=== PATIENT | male | born 1990 | race Caucasian/White ===

== ENCOUNTER 2021-07-22 18:55 | Emergency (ER) | payer SELFPAY ==
--- NOTE | 2021-07-22 22:08 | RAD REPORT ---
EXAM DESCRIPTION: RAD - Hand Right 3 View - 07/22/2021 9:19 pm CLINICAL HISTORY: Pain;Swelling COMPARISON: Hand Right 3 View dated 12/03/2011 FINDINGS: Two small screws are seen in the third metacarpal shaft. No acute fracture or dislocation seen.
--- NOTE | 2021-07-23 03:24 | ER ---
Nurse's Notes [facility] Name: Juan David Moeller Age: 30 yrs Sex: Male : 1990 Arrival Date: 07/22/2021 Time: 19:01 Bed 12 Private MD: Diagnosis: Contusion, Right Hand;Abrasion, Hands;Burn bilateral palms, Healing Presentation: 07/22 20:20 Chief complaint: Patient states: hit right hand against auger at work , feels like it's iw broken , happened 3 day ago , had also burnt his hands a couple days before that. Coronavirus screen: At this time, the client does not indicate any symptoms associated with coronavirus-19. Ebola Screen: Patient negative for fever greater than or equal to 101.5 degrees Fahrenheit, and additional compatible Ebola Virus Disease symptoms Patient denies exposure to infectious person. Patient denies travel to an Ebola-affected area in the 21 days before illness onset. No symptoms or risks identified at this time. Initial Sepsis Screen: Does the patient meet any 2 criteria? No. Patient's initial sepsis screen is negative. Does the patient have a suspected source of infection? No. Patient's initial sepsis screen is negative. Risk Assessment: Do you want to hurt yourself or someone else? Patient reports no desire to harm self or others. Onset of symptoms was July 19, 2021. 20:20 Method Of Arrival: Ambulatory iw 20:20 Acuity: LEONARDO 4 iw Historical: - Allergies: 20:22 Sulfa (Sulfonamide Antibiotics); iw - Home Meds: 20:22 None [Active]; iw - PMHx: 20:22 None; iw - Immunization history:: Client reports having NOT received the Covid vaccine. - Social history:: Smoking status: Patient reports the use of cigarette tobacco products, smokes one-half pack cigarettes per day. Assessment: 07/23 03:43 Reassessment: Patient is alert, oriented x 3, equal unlabored respirations, skin bb warm/dry/pink. pt seen by this RN at discharge. Pt verbalized understanding of and agrees to plan of care discharge instructions given pt ambulated with steady gait to exit. Vital Signs: 07/22 20:20 BP 160 / 80; Pulse 87; Resp 16; Temp 98.9; Pulse Ox 100% on R/A; Weight 61.23 kg; iw Height 5 ft. 9 in. (175.26 cm); Pain 3/10; 07/23 03:41 BP 153 / 71; Pulse 67; Resp 16; Temp 97.9(O); Pulse Ox 99% on R/A; tt3 07/22 20:20 Body Mass Index 19.94 (61.23 kg, 175.26 cm) iw ED Course: 07/22 19:01 Patient arrived in ED. ds1 20:22 Triage completed. iw 20:23 Arm band placed on. iw 21:19 Hand Right 3 View XRAY In Process Unspecified. EDSD 07/23 02:51 Saul Sam MD is Attending Physician. [facility] 03:19 Turner Patel MD is Referral Physician. [facility] 03:45 No provider procedures requiring assistance completed. Patient did not have IV access bb during this emergency room visit. Administered Medications: 03:31 Drug: Ketorolac 60 mg Route: IM; Site: left gluteus; bb Outcome: 03:24 Discharge ordered by . [facility] 03:45 Discharged to home ambulatory. bb 03:45 Condition: stable 03:45 Discharge instructions given to patient, Instructed on discharge instructions, follow up and referral plans. medication usage, Demonstrated understanding of instructions, follow-up care, medications, Prescriptions given X 2. 03:45 Patient left the ED. bb Signatures: Dispatcher [employer] [facility] Kathia Nguyen ds1 Jie Cooley RN RN bb Williams, Irene, RN RN iw Holmes, Maurice, MD MD [facility] Joaquín Nice tt3
--- NOTE | 2021-07-23 03:24 | EDPHYS ---
Physician Documentation [facility] Name: Juan David Moeller Age: 30 yrs Sex: Male : 1990 Arrival Date: 07/22/2021 Time: 19:01 Bed 12 Private MD: ED Physician Saul Sam HPI: 07/23 03:02 This 30 yrs old Male presents to ER via Ambulatory with complaints of Hand mh7 Injury - R, L arm poss infection. 03:02 The patient or guardian reports a burn, from touching a hot surface, a contusion, mh7 injury. The complaints affect the Right hand and left hand palm. Context: The problem was sustained at work, resulted from a direct blow, by industrial equipment, Burn from holding he did equipment without gloves. Onset: The symptoms/episode began/occurred 6 day(s) ago. Modifying factors: The symptoms are alleviated by nothing, the symptoms are aggravated by nothing. Associated signs and symptoms: Pertinent negatives: cyanosis distally, decreased sensation distally, fever, nausea, numbness distally, tingling distally, vomiting. Severity of symptoms: At their worst the symptoms were moderate, 5 day(s) ago, in the emergency department the symptoms have improved, moderately. Patient reports au to palms of both hands due to holding heated equipment while working about 6 days ago. He states that he had blisters to both palms. He also states that he accidentally hit the back of his right hand against equipment at work about 3 days ago.. Historical: - Allergies: 07/22 20:22 Sulfa (Sulfonamide Antibiotics); iw - Home Meds: 20:22 None [Active]; iw - PMHx: 20:22 None; iw - Immunization history:: Client reports having NOT received the Covid vaccine. - Social history:: Smoking status: Patient reports the use of cigarette tobacco products, smokes one-half pack cigarettes per day. ROS: 07/23 03:02 Constitutional: Negative for fever, chills, and weight loss, Eyes: Negative for injury, mh7 pain, redness, and discharge, ENT: Negative for injury, pain, and discharge, Neck: Negative for injury, pain, and swelling, Cardiovascular: Negative for chest pain, palpitations, and edema, Respiratory: Negative for shortness of breath, cough, wheezing, and pleuritic chest pain, Abdomen/GI: Negative for abdominal pain, nausea, vomiting, diarrhea, and constipation, Back: Negative for injury and pain, : Negative for injury, bleeding, discharge, and swelling, Neuro: Negative for headache, weakness, numbness, tingling, and seizure, Psych: Negative for depression, anxiety, suicide ideation, homicidal ideation, and hallucinations, Allergy/Immunology: Negative for hives, rash, and allergies, Endocrine: Negative for neck swelling, polydipsia, polyuria, polyphagia, and marked weight changes, Hematologic/Lymphatic: Negative for swollen nodes, abnormal bleeding, and unusual bruising. Exam: 03:02 Constitutional: This is a well developed, well nourished patient who is awake, alert, mh7 and in no acute distress. Head/Face: Normocephalic, atraumatic. 03:02 Neuro: Awake and alert, GCS 15, oriented to person, place, time, and situation. Cranial nerves II-XII grossly intact. Motor strength 5/5 in all extremities. Sensory grossly intact. Cerebellar exam normal. Normal gait. Psych: Awake, alert, with orientation to person, place and time. Behavior, mood, and affect are within normal limits. 03:02 Musculoskeletal/extremity: Extremities: noted in the Dorsal right hand: contusion, noted in the Right hand palm and left hand palm: abrasion, Multiple small calluses, ROM: intact in all extremities, Circulation is intact in all extremities. Sensation intact. Compartment Syndrome exam of affected extremity: is normal. no numbness, no tingling, no sensation deficit, no palor, no weak pulses, Joints: All joints appear normal with full range of motion. 03:02 Skin: injury, abrasion(s), small abrasion noted, of the Right hand palm and left hand palm, contusion(s), that are superficial, of the Dorsal right hand, Small calluses bilateral palms. Vital Signs: 07/22 20:20 BP 160 / 80; Pulse 87; Resp 16; Temp 98.9; Pulse Ox 100% on R/A; Weight 61.23 kg; iw Height 5 ft. 9 in. (175.26 cm); Pain 3/10; 07/23 03:41 BP 153 / 71; Pulse 67; Resp 16; Temp 97.9(O); Pulse Ox 99% on R/A; tt3 07/22 20:20 Body Mass Index 19.94 (61.23 kg, 175.26 cm) iw MDM: 03:12 Differential diagnosis: dislocation, closed fracture, contusion, abrasion, Burn. [facility] 03:18 Data reviewed: vital signs, nurses notes, radiologic studies, plain films. Data [facility] interpreted: Pulse oximetry: on room air is 100 %. Interpretation: normal. Counseling: I had a detailed discussion with the patient and/or guardian regarding: the historical points, exam findings, and any diagnostic results supporting the discharge/admit diagnosis, the presence of at least one elevated blood pressure reading (>120/80) during this emergency department visit, radiology results, the need for outpatient follow up, a hand specialist. Response to treatment: the patient's symptoms have markedly improved after treatment. 03:24 Patient medically screened. [facility] 07/22 20:23 Order name: Hand Right 3 View XRAY; Complete Time: 02:52 iw 07/23 03:18 Order name: Splint - Volar Wrist Splint; Complete Time: 03:32 [facility] Administered Medications: 03:31 Drug: Ketorolac 60 mg Route: IM; Site: left gluteus; bb Disposition Summary: 07/23/21 03:24 Discharge Ordered Location: Home [facility] Problem: an ongoing problem [facility] Symptoms: have improved [facility] Condition: Stable [facility] Diagnosis - Contusion, Right Hand 7 - Abrasion, Hands 7 - Burn bilateral palms, Healing [facility] Followup: 7 - With: Private Physician - When: 1 - 2 days - Reason: Worsening of condition, Recheck today's complaints, Continuance of care, Re-evaluation by your physician Followup: [facility] - With: Turner Patel MD - When: 1 - 2 days - Reason: Worsening of condition, Recheck today's complaints Discharge Instructions: - Discharge Summary Sheet [facility] - Hand Contusion, [id number] [facility] - Abrasion, [id number] [facility] - Burn Care, Adult, [id number] [facility] Forms: - Medication Reconciliation Form [facility] - Thank You Letter [facility] - Antibiotic Education [facility] - Prescription Opioid Use [facility] Prescriptions: - bacitracin - Apply to affected area 1 application by TOPICAL route 2 times per day for 7 mh7 days; 1 tube; Refills: 0, Product Selection Permitted - ketorolac 10 mg Oral tablet - take 1 tablet by ORAL route every 6 hours As needed not to exceed 40 mg in [facility] 24hrs; 12 tablet; Refills: 0, Product Selection Permitted Signatures: Dispatcher [employer] Jie Quiles RN RN bb Williams, Irene, RN RN iw Holmes, Maurice, MD MD [facility]
[2021-07-23] MEDS ORDERED: KETOROLAC 30 MG/ML INJ ONE (03:44)
[2021-07-23 03:51] VITALS: BP 153/71; TEMP 97.9; O2SAT 99
== END 2021-07-23 03:45 | disposition home or self-care (01) ==
LOC: ER 18:55
DX: S60.512A Abrasion of left hand, initial encounter (principal); S60.511A Abrasion of right hand, initial encounter; T23.052A Burn of unspecified degree of left palm, initial encounter; T23.051A Burn of unspecified degree of right palm, initial encounter; X17.XXXA Contact with hot engines, machinery and tools, initial encounter; Y93.89 Activity, other specified; Y92.89 Other specified places as the place of occurrence of the external cause; Y99.8 Other external cause status; Z88.2 Allergy status to sulfonamides; F17.210 Nicotine dependence, cigarettes, uncomplicated
CPT/HCPCS: 96372; 99283